=== PATIENT | male | born 1965 | race Caucasian/White ===

== ENCOUNTER 2017-06-15 22:34 | Inpatient (IN) | payer SELFPAY ==
[~2017-06-15] VITALS: Ht 190.5 cm; Wt 142.7 kg
[~2017-06-15 22:34] MED LIST: CIPRO500 MG PO; FLAGYL500 MG PO
[2017-06-15 23:33] LABS: HEMATOCRIT 40.5 % (38.0-50.0); MCH 28.5 PG (29.0-34.0); MCHC 33.6 G/DL (30.0-36.0); MCV 84.9 FL (86-99); MEAN PLAT.VOLUME 8.8 uM^3 (9.0-12.4); PLATELET COUNT 240 K/uL (156-360); RBC DIS.WIDTH-SD 43.8 % (39-53); RED BLOOD COUNT 4.77 M/uL (4.00-5.50)
[2017-06-15 23:43] LABS: CHLORIDE 102 mEq/L (99-109); POTASSIUM 4.2 mEq/L (3.7-5.4); SODIUM 140 mEq/L (136-147)
[2017-06-15 23:46] LABS: GLUCOSE 122 mg/dL (70-99)
[2017-06-15 23:47] LABS: ANION GAP 11 MEQ/L (2-14); TOTAL BILIRUBIN 0.7 mg/dL (0.0-1.0)
[2017-06-15 23:49] LABS: ALKALINE PHOSPHATASE 106 IU/L (3-129); GFR ESTIMATE (CALCULATED) > 59 mL/min/
[2017-06-15 23:50] LABS: UREA NITROGEN (BUN) 14 mg/dL (9-23)
[2017-06-16 00:12] LABS: ERTH.SED.RATE 38 MM/HR (0-20)
[2017-06-16 00:13] LABS: INTER. NORMALIZED RATIO 1.2; PROTHROMBIN TIME 12.7 SEC (10.2-12.9)
[2017-06-16 00:14] LABS: PTT 29.9 SEC (25-37)
[2017-06-16] MEDS ORDERED: ADVIL PM1 TABLET PO (01:11)
[2017-06-16] MEDS ORDERED: ELDERBERRY PO (01:11)
[2017-06-16] MEDS ORDERED: [UNRECOGNIZED DRUG - OTHER] (01:11)
[2017-06-16] MEDS ORDERED: TYLENOL EXTRA500 MG PO (01:12)
[2017-06-16] MEDS ORDERED: GINSENG100 MG PO (01:12)
[2017-06-16 01:54] LABS: C-REACTIVE PROTEIN 116.9 MG/L (0-10)
[2017-06-16 04:43] VITALS: BP 142/77
[2017-06-16 08:00] VITALS: BP 160/90
[2017-06-16 11:04] VITALS: BP 157/92
[2017-06-16 13:38] LABS: Estimated Average Glucose 111 mg/dL (70-123); HEMOGLOBIN A1c (GLYCOHEMOGLOB) 5.5 % HGB (Below 5.7)
[2017-06-16 20:00] VITALS: BP 144/76
[2017-06-16 23:51] VITALS: BP 140/87
[2017-06-17 04:03] VITALS: BP 130/61
[2017-06-17 06:11] LABS: BASOPHIL COUNT 0.1 K/uL (0-0.1); EOSINOPHIL (%) 3.2 % (0-5); EOSINOPHIL COUNT 0.3 K/uL (0-0.3); HEMATOCRIT 37.9 % (38.0-50.0); IMMATURE GRANULOCYTE (%) 0.9 % (0.0-0.7); IMMATURE GRANULOCYTE COUNT 0.1 K/uL; INSTRUMENT ABS NEUTROPHIL CT 4.9 K/uL; LYMPHOCYTE COUNT 1.7 K/uL (1.0-2.8); MCH 28.9 PG (29.0-34.0); MCHC 33.2 G/DL (30.0-36.0); MCV 86.9 FL (86-99); NEUTROPHIL (%) 62.1 % (45-76); NEUTROPHIL COUNT 4.9 K/uL (1.8-6.4); PLATELET COUNT 204 K/uL (156-360); RBC DIS.WIDTH-CV 14.2 % (11.8-14.6); RBC DIS.WIDTH-SD 45.7 % (39-53); RED BLOOD COUNT 4.36 M/uL (4.00-5.50); WHITE BLOOD COUNT 7.9 K/uL (4.1-10.2)
[2017-06-17 06:35] LABS: ANION GAP 6 MEQ/L (2-14); CHLORIDE 106 MEQ/L (99-109); GFR ESTIMATE (CALCULATED) > 59 mL/min/; POTASSIUM 4.2 MEQ/L (3.7-5.4); SAMPLE HEMOLYSIS CHECK 0; SAMPLE ICTERIC CHECK 0; SAMPLE LIPEMIA CHECK 0; SODIUM 140 MEQ/L (136-147); UREA NITROGEN (BUN) 13 mg/dL (9-23)
[2017-06-17 06:36] LABS: GLUCOSE 91 mg/dL (70-99)
[2017-06-17 07:48] VITALS: BP 141/79
[2017-06-17 11:02] VITALS: BP 136/78
[2017-06-17 16:26] VITALS: BP 158/72
[2017-06-17 20:49] VITALS: BP 138/84
[2017-06-17 23:44] VITALS: BP 148/81
[2017-06-18 06:08] LABS: HEMATOCRIT 39.9 % (38.0-50.0); MCH 29.2 PG (29.0-34.0); MCHC 33.8 G/DL (30.0-36.0); MCV 86.2 FL (86-99); MEAN PLAT.VOLUME 8.8 uM^3 (9.0-12.4); PLATELET COUNT 226 K/uL (156-360); RBC DIS.WIDTH-CV 14.2 % (11.8-14.6); RBC DIS.WIDTH-SD 44.5 % (39-53); RED BLOOD COUNT 4.63 M/uL (4.00-5.50); WHITE BLOOD COUNT 6.4 K/uL (4.1-10.2)
[2017-06-18 06:38] LABS: ANION GAP 6 MEQ/L (2-14); CHLORIDE 105 MEQ/L (99-109); GFR ESTIMATE (CALCULATED) > 59 mL/min/; GLUCOSE 97 mg/dL (70-99); POTASSIUM 4.2 MEQ/L (3.7-5.4); SAMPLE HEMOLYSIS CHECK 0; SAMPLE ICTERIC CHECK 0; SAMPLE LIPEMIA CHECK 0; SODIUM 140 MEQ/L (136-147); UREA NITROGEN (BUN) 13 mg/dL (9-23)
[2017-06-18 07:40] VITALS: BP 170/84
[2017-06-18] MEDS ORDERED: BACTRIM,SEPT1 TABLET PO (07:49)
[2017-06-18] MEDS ORDERED: BACTROBAN OINTM22 GM TP (07:54)
== END 2017-06-18 12:40 | disposition home or self-care (01) | DRG 603 ==
LOC: EME 22:34 → EDOF 06-16 02:40 → 5SOUTH 06-16 02:40 → ENRESERV 06-16 02:43 → 5SOUTH 06-16 03:52
PROVIDERS: Emergency Medicine; Hospitalist; Internal Medicine
DX: L03.116 Cellulitis of left lower limb (principal); L97.829 Non-pressure chronic ulcer of other part of left lower leg with unspecified severity; L03.032 Cellulitis of left toe; L97.529 Non-pressure chronic ulcer of other part of left foot with unspecified severity; B95.62 Methicillin resistant Staphylococcus aureus infection as the cause of diseases classified elsewhere; M70.42 Prepatellar bursitis, left knee; E66.9 Obesity, unspecified; Z68.39 Body mass index [BMI] 39.0-39.9, adult
CPT/HCPCS: 73564; 73630; 73720; 80048; 80053; 80202; 83036; 83605; 85025; 85027; 85610; 85651; 85730; 86140; 87040; 87070; 87075; 87076; 87077; 87147; 87186; 87205; 93971; 99281; 99285; J0690; J1650; J3370; J7030; J7040